=== PATIENT | male | born 1960 | race Caucasian/White ===

== ENCOUNTER → 2017-09-24 | Outpatient (CLI) | payer BC ==
[~2017-09-24] MED LIST: OPTIRAY 320 IV PRN
--- NOTE | 2017-09-24 16:54 | DIAGNOSTIC IMAGING REPORT ---
CT (CHEST) THORAX WITH CT DOSE: 367.66 mGy.cm HISTORY: Dyspnea J44.9 Chronic obstructive pulmonary disease TECHNIQUE: Multiaxial CT images of the chest were performed following the intravenous administration of contrast. A dose lowering technique was utilized adhering to the principles of ALARA. COMPARISON: None. FINDINGS: Hilar and mediastinal regions are unremarkable. No significant adenopathy. The thoracic aorta is normal in course and caliber. Lungs are considered clear. Minimal emphysematous change. Several small blebs over the pulmonary apices. Moderate degenerative changes thoracic spine. IMPRESSION: 1. Mild emphysematous change. 2. Several small blebs over the pulmonary apices. 3. Otherwise negative study. The above report was generated using voice recognition software. It may contain grammatical, syntax or spelling errors. Electronically signed by: Bobby Terrell M.D. 09/24/2017 4:53 PM Dictated Date/Time: 09/24/2017 4:51 PM
== END | disposition home or self-care (01) ==
LOC: C.CTS 16:05
PROVIDERS: ATTEND Internal Medicine Pulmonary Disease
DX: J44.9 Chronic obstructive pulmonary disease, unspecified (principal)